=== PATIENT | female | born 1990 | race Caucasian/White ===

== ENCOUNTER 2017-04-26 16:42 | Emergency (ER) | payer BC, OTHER ==
[~2017-04-26] VITALS: Ht 165.1 cm; Wt 122.5 kg
[~2017-04-26 16:42] MED LIST: ACET1TAB43 PO; AMOX-355 PO; CALC-778 PO; CEFD300C3 PO; CEPH-507 PO; DOCU100C37 PO; FAMO-119 PO; FERR-74 PO; IBUP-1773 PO; OMEP20TA7 PO; PREN1TAB79 PO
--- OUTSIDE RECORDS SUMMARY | 2017-04-26 16:49 | XMS REPORT | Continuity of Care Document ---
Demographics Preferred Language Unknown Marital Status Unknown Sikh Affiliation Unknown Race Unknown Ethnic Group Unknown Author Author [facility] Address Unknown Phone Unavailable Allergies Active Description Code Type Severity Reaction Onset Reported/Identified Relationship to Patient Clinical Status Yes No Known Drug Allergies [id number] Drug Allergy Unknown N/A 12/25/2014 Medications There is no data. Problems Date Dx Coded Attending Type Code Diagnosis Diagnosed By 08/03/2011 462 PHARYNGITIS ACUTE 08/03/2011 465.9 UPPER RESPIRATORY INFECTION 11/02/2011 625.9 PELVIC PAIN 11/02/2011 626.4 IRREGULAR MENSTRUAL CYCLE 11/02/2011 701.2 ACQUIRED ACANTHOSIS NIGRICANS 11/02/2011 V25.01 CONTRACEPTION - ORAL CONTRACEPTION 11/02/2011 V74.5 STD SCREEN 12/16/2011 311 DEPRESSIVE DISORDER NOS 10/04/2012 625.8 OTHER SPECIFIED SYMPTOMS ASSOCIATED WITH FEMALE GENITAL ORGANS 12/25/2014 YASH AMBROSE Ot 599.0 12/25/2014 YASH AMBROSE Ot 623.8 12/25/2014 YASH AMBROSE Ot 640.03 12/25/2014 YASH AMBROSE Ot 646.63 02/25/2015 FENECH DO, ELMIRA S Ot Z36 02/25/2015 FENECH DO, ELMIRA S Ot N89.8 02/25/2015 FENECH DO, ELMIRA S Ot N94.89 02/25/2015 FENECH DO, ELMIRA S Ot O99.89 02/25/2015 FENECH DO, ELMIRA S Ot Z3A.00 03/04/2015 FENECH DO, ELMIRA S Ot V28.81 03/11/2015 FENECH DO, ELMIRA S Ot Z36 03/19/2015 PINEDA HUNTLEY DO Ot O99.613 03/19/2015 PINEDA HUNTLEY DO Ot R10.9 03/19/2015 PINEDA HUNTLEY DO Ot Z3A.30 03/28/2015 FENECH DO, ELMIRA S Ot O23.43 03/28/2015 FENECH DO, ELMIRA S Ot Z3A.32 04/06/2015 NIKITA GATES, SOPHIA Anaya Ot O47.03 04/06/2015 NIKITA GATES, SOPHIA Anaya Ot Z3A.33 04/07/2015 NIKITA GATES, SOPHIA Anaya Ot O47.03 04/07/2015 NIKITA GATES, SOPHIA Anaya Ot Z3A.33 04/30/2015 HUNTLEY PINEDA CASPER Ot O47.03 04/30/2015 HUNTLEY PINEDA CASPER Ot Z3A.36 05/27/2015 FENECH DO, ELMIRA S Ot D62 05/27/2015 FENECH DO, ELMIRA Grant Ot O41.03X0 05/27/2015 FENECH DO, ELMIRA S Ot O48.0 05/27/2015 FENECH DO, ELMIRA Grant Ot O63.0 05/27/2015 FENECH DO, ELMIRA Grant Ot O76 05/27/2015 FENECH DO, ELMIRA Grant Ot O90.81 05/27/2015 FENECH DO, ELMIRA Grant Ot O99.824 05/27/2015 FENECH DO, ELMIRA Grant Ot Z37.0 05/27/2015 FENECH DO, ELMIRA Grant Ot Z3A.40 02/22/2016 MADHU BLANCHARD DO Ot M79.671 PAIN IN RIGHT FOOT 02/22/2016 SANTO CASPER MADHU Brooke Ot R23.8 OTHER SKIN CHANGES 02/24/2016 SANTO CASPER MADHU Brooke Ot M79.671 PAIN IN RIGHT FOOT 02/24/2016 SANTO CASPER MADHU Brooke Ot R23.8 OTHER SKIN CHANGES Procedures Code Description [place] [address] GC/CHLAM PROBE (STATE) 10/04/2012 41082 CULTURE UROGENITAL 10/06/2012 Results There is no data. Encounters ACCT No. Visit Date/Time Discharge Status Pt. Type Provider Facility Loc./Unit Complaint [id number] 10/04/2012 11:09:00 Document Registration [id number] 02/22/2016 22:27:00 02/22/2016 23:09:00 DIS Emergency SANTO CASPERMADHU Via [facility] ER R FOOT PAIN [id number] 05/24/2015 04:11:00 05/27/2015 11:15:00 DIS Inpatient ELMIRA MANCILLA DO [facility] LDRP [id number] 04/30/2015 10:03:00 04/30/2015 11:15:00 DIS Outpatient [facility]ED[facility] [id number] 04/07/2015 09:23:00 04/07/2015 11:11:00 DIS Outpatient SOPHIA SHELTON [facility] [id number] 04/06/2015 09:26:00 04/06/2015 11:15:00 DIS Outpatient SOPHIA SHELTON MD [facility] [id number] 03/28/2015 17:01:00 03/28/2015 18:25:00 DIS Outpatient LATIALEV CASPER ELMIRA Juanita [facility] [id number] 03/19/2015 15:20:00 03/19/2015 16:50:00 DIS Outpatient PINEDA HUNTLEY DO [facility] [id number] 02/25/2015 17:30:00 02/25/2015 20:53:00 DIS Outpatient LAURENT CASPER ELMIRA Juanita [facility] [id number] 02/21/2015 10:11:00 02/21/2015 23:59:59 CLS Outpatient LAURENT DO ELMIRA Juanita [facility] RAD [id number] 01/21/2015 10:59:00 01/21/2015 23:59:59 CLS Outpatient LATIALEV CASPER ELMIRA Juanita [facility] RAD [id number] 12/25/2014 17:56:00 12/25/2014 21:03:00 DIS Emergency YASH AMBROSE [facility] ER
[2017-04-26] MEDS ORDERED: ACETAMINOPHEN 500 MG TAB (TYLENOL) PO ONE (17:15)
[2017-04-26] MEDS ORDERED: IBUPROFEN 800 MG (MOTRIN) TAB PO ONE (17:15)
--- NOTE | 2017-04-26 17:30 | ED General ---
General Chief Complaint: Cough/Cold/Flu Symptoms Stated Complaint: FEVER,CONFUSION,LETHARGIC,VOMITING Nursing Triage Note: PT CO OF COUGH COLD FLU SINCE YESTERDAY. FEVER 101.5 Nursing Sepsis Screen: No Definite Risk Source of Information: Patient Exam Limitations: No Limitations History of Present Illness Time Seen by Provider: 17:30 Initial Comments to ER with reports of general malaise, high fever up to 103, cough and chills since yesterday. Timing/Duration: 1-2 Days Severity: Moderate Associated Systoms: Cough, Fever/Chills Allergies and Home Medications Allergies Coded Allergies: No Known Drug Allergies (Unverified , 12/25/14) Home Medications No Active Prescriptions or Reported Meds Constitutional: see HPI EENTM: see HPI Respiratory: see HPI, cough Cardiovascular: no symptoms reported Genitourinary: no symptoms reported Musculoskeletal: no symptoms reported Skin: no symptoms reported Psychiatric/Neurological: No Symptoms Reported Past Yzjuetm-Tovapd-Iripya Hx Patient Social History Alcohol Use: Rarely Uses Recreational Drug Use: No Smoking Status: Never a Smoker Recent Foreign Travel: No Contact w/Someone Who Travel: No Recent Infectious Disease Expo: No Recent Hopitalizations: No Physical Abuse: No Sexual Abuse: No Immunizations Up To Date Tetanus Booster (TDap): Less than 5yrs Seasonal Allergies Seasonal Allergies: No Surgeries History of Surgeries: Yes (bladder surgery as a child) Surgeries: Bladder Surgery Respiratory History of Respiratory Disorde: Yes Respiratory Disorders: Asthma Currently Using CPAP: No Currently Using BIPAP: No Cardiovascular History of Cardiac Disorders: No Neurological History of Neurological Disord: No Reproductive System Hx Reproductive Disorders: No Sexually Transmitted Disease: No HIV/AIDS: No Genitourinary Genitourinary Disorders: UTI (peds) Gastrointestinal History of Gastrointestinal Di: No Musculoskeletal History of Musculoskeletal Dis: Yes (Possible pinched nerve in back) Musculoskeletal Disorders: Chronic Back Pain Endocrine History of Endocrine Disorders: No Cancer History of Cancer: No Psychosocial History of Psychiatric Problem: Yes Behavioral Health Disorders: Anxiety, Depression Suicide Risk Score: 0 Integumentary History of Skin or Integumenta: Yes Skin/Integumentary Disorders: Eczema Blood Transfusions History of Blood Disorders: No Adverse Reaction to a Blood Tr: No Family Medical History Family Medial History: FH: stroke (Grandfather) FHx: aneurysm (Grandfather) FHx: heart failure (Grandfather) Hypertension (Grandfather, mother) Physical Exam Vital Signs Vital Sign - Last 12Hours 04/26/17 17:00 Temp 101.5 Pulse 113 Resp 20 B/P (MAP) 135/80 (98) Pulse Ox 98 Capillary Refill : Less Than 3 Seconds General Appearance: No Apparent Distress, WD/WN Eyes: Bilateral Eye Normal Inspection, Bilateral Eye PERRL, Bilateral Eye EOMI HEENT: PERRL/EOMI, TMs Normal Neck: Full Range of Motion, Normal Inspection Respiratory: Normal Breath Sounds, No Accessory Muscle Use, No Respiratory Distress Cardiovascular: Regular Rate, Rhythm, Normal Peripheral Pulses Gastrointestinal: Normal Bowel Sounds, Non Tender, Soft Extremity: Normal Capillary Refill, Normal Inspection Neurologic/Psychiatric: Alert, Oriented x3, No Motor/Sensory Deficits, Other ( she is alert and oriented. There is no confusion.) Skin: Normal Color, Warm/Dry Progress/Results/Core Measures Suspected Sepsis Recent Fever Within 48 Hours: Yes Infection Criteria Present: None New/Unexplained Altered Menta: No Sepsis Screen: No Definite Risk Sepsis Diagnosis: SIRS Temperature:101.5 Pulse: 113 Respiratory Rate: 20 Blood Pressure 135 /80 Mean: 98 Results/Orders Micro Results Microbiology 04/26/17 Influenza Types A,B Antigen (GEORGE) - Final, Complete My Orders Orders - SHADI FERRARO APRN Influenza A And B Antigens (04/26/17 17:06) Acetaminophen Tablet (Tylenol Tablet) (04/26/17 17:15) Ibuprofen Tablet (Motrin Tablet) (04/26/17 17:15) Cbc With Automated Diff (04/26/17 17:06) Basic Metabolic Panel (04/26/17 17:06) Medications Given in ED Current Medications Medications Dose Ordered Sig/Corey Route Start Time Stop Time Status Last Admin Dose Admin Acetaminophen 1,000 mg ONCE ONCE PO 04/26/17 17:15 04/26/17 17:16 DC 04/26/17 17:17 1,000 MG Ibuprofen 800 mg ONCE ONCE PO 04/26/17 17:15 04/26/17 17:16 DC 04/26/17 17:17 800 MG Vital Signs/I&O Vital Sign - Last 12Hours 04/26/17 17:00 Temp 101.5 Pulse 113 Resp 20 B/P (MAP) 135/80 (98) Pulse Ox 98 Capillary Refill : Less Than 3 Seconds Blood Pressure Mean: 98 Departure Impression Impression: Primary Impression: Influenza Disposition: 01 HOME, SELF-CARE Condition: Stable Departure-Patient Inst. Decision time for Depature: 17:37 Referrals: NO,LOCAL PHYSICIAN (PCP/Family) Primary Care Physician Patient Instructions: Flu, Adult (DC) Add. Discharge Instructions: 1. Tylenol and Motrin. Expect a fever to persist for the next 3-5 days. Drink plenty of fluids to stay hydrated. Scripts No Active Prescriptions or Reported Meds Work/School Note: Work Release Form Date Seen in the Emergency Department: Apr 26, 2017 Return to Work: Apr 30, 2017 SHADI FERRARO APRN Apr 26, 2017 17:30
[2017-04-26 18:02] VITALS: BP 135/80
[2017-04-26] MEDS ORDERED: OSELTAMIVIR 75 MG (TAMIFLU) BOX OF 10 PO SCH (21:00)
== END 2017-04-26 18:04 | disposition home or self-care (01) ==
LOC: EDUNIT# 16:42 → ER 16:45
DX: J11.1 Influenza due to unidentified influenza virus with other respiratory manifestations (principal); J45.909 Unspecified asthma, uncomplicated; F41.9 Anxiety disorder, unspecified; F32.9 Major depressive disorder, single episode, unspecified; Z82.49 Family history of ischemic heart disease and other diseases of the circulatory system; Z87.440 Personal history of urinary (tract) infections
CPT/HCPCS: 87804; 99283

== ENCOUNTER 2023-03-14 11:40 | Observation (INO) | payer OTHER ==
[~2023-03-14] VITALS: Ht 165.1 cm; Wt 142.9 kg
[~2023-03-14 11:40] MED LIST changes: +ACET-11 PO; -ACET1TAB43 PO; -FERR-74 PO; +FERR325T18 PO; +OMEP20TA56 PO; -OMEP20TA7 PO
[2023-03-14] MEDS ORDERED: methylPREDNISolone INJ 125 MG VIAL IV STA (13:27)
[2023-03-14] MEDS ORDERED: RT-Ipratropium/Albuterol NEB 3 ML VIAL INH ONE (13:30)
--- NOTE | 2023-03-14 13:35 | ED Respiratory ---
General Chief Complaint: Fever-Adult/Adol Stated Complaint: FEVER - COUGH Source: patient Exam Limitations: no limitations History of Present Illness Date Seen by Provider: Mar 14, 2023 Time Seen by Provider: 13:21 Initial Comments 32-year-old female presents to the ER with reports of difficulty breathing since 03/05/2023. She reports she has had very high temperatures of 104- 105. Reports cough as well. She is complaining of heaviness in her chest that has been present since Wednesday. Reports this heaviness has been constant. She denies abdominal pain, nausea, vomiting, diarrhea. Past medical history of asthma, states she last used her albuterol inhaler yesterday. She was seen at [facility] today and they sent her out here. She reports that they did COVID, flu, and strep tests which were negative. Allergies and Home Medications Allergies Coded Allergies: No Known Drug Allergies (Unverified , 12/25/14) Patient Home Medication List Home Medication List Reviewed: Yes No Active Prescriptions or Reported Meds Review of Systems Review of Systems Constitutional: see HPI Past Kbhchzy-Ukikhl-Wjvkzk Hx Patient Social History Tobacco Use?: No Use of E-Cig and/or Vaping dev: No Substance use?: No Alcohol Use?: No Pt feels they are or have been: No Immunizations Up To Date Tetanus Booster (TDap): Less than 5yrs Influenza Vaccine Up-to-Date: No; Not Current First/Initial COVID19 Vaccinat: 3 SHOTS Seasonal Allergies Seasonal Allergies: No Past Medical History Surgery/Hospitalization HX: ASTHMA, HEART MURMER DENIES SURG Surgeries: Yes (bladder surgery as a child) Bladder Surgery Respiratory: Yes Asthma Currently Using CPAP: No Currently Using BIPAP: No Cardiac: No Neurological: No Reproductive Disorders: No Sexually Transmitted Disease: No HIV/AIDS: No UTI (peds) Gastrointestinal: No Musculoskeletal: Yes (Possible pinched nerve in back) Chronic Back Pain Endocrine: No Cancer: No Psychosocial: Yes Anxiety, Depression Integumentary: Yes Eczema Blood Disorders: No Adverse Reaction/Blood Tranf: No Family Medical History FH: stroke (Grandfather) FHx: aneurysm (Grandfather) FHx: heart failure (Grandfather) Hypertension (Grandfather, mother) Physical Exam Vital Signs - First Documented 03/14/23 12:00 Temp 38.0 Pulse 95 Resp 20 B/P (MAP) 119/73 (88) Pulse Ox 94 O2 Delivery Room Air Capillary Refill : Height: 5'5.00" Weight: 270lbs. 4.0oz. 122.169891go; 48.49 BMI Method:Stated General Appearance: WD/WN, no apparent distress Neck: supple, normal inspection Respiratory: chest non-tender, lungs clear, normal breath sounds, no respiratory distress, no accessory muscle use Cardiovascular: regular rate, rhythm Extremities: normal range of motion, normal inspection Neurologic/Psychiatric: alert, normal mood/affect Skin: normal color, warm/dry Progress/Results/Core Measures Suspected Sepsis SIRS Temperature: Pulse: Respiratory Rate: Laboratory Tests 03/14/23 13:41: White Blood Count 7.5 Blood Pressure / Mean: Laboratory Tests 03/14/23 13:41: Creatinine 1.11, INR Comment 1.0, Platelet Count 249, Total Bilirubin 0.5 Results/Orders Lab Results Laboratory Tests Test 03/14/23 13:41 Range/Units White Blood Count 7.5 4.3-11.0 10^3/uL Red Blood Count 4.61 3.80-5.11 10^6/uL Hemoglobin 13.4 11.5-16.0 g/dL Hematocrit 40 35-52 % Mean Corpuscular Volume 87 80-99 fL Mean Corpuscular Hemoglobin 29 25-34 pg Mean Corpuscular Hemoglobin Concent 34 32-36 g/dL Red Cell Distribution Width 13.6 10.0-14.5 % Platelet Count 249 130-400 10^3/uL Mean Platelet Volume 8.8 L 9.0-12.2 fL Immature Granulocyte % (Auto) 0 % Neutrophils (%) (Auto) 76 H 42-75 % Lymphocytes (%) (Auto) 15 12-44 % Monocytes (%) (Auto) 7 0-12 % Eosinophils (%) (Auto) 2 0-10 % Basophils (%) (Auto) 0 0-10 % Neutrophils # (Auto) 5.6 1.8-7.8 10^3/uL Lymphocytes # (Auto) 1.1 1.0-4.0 10^3/uL Monocytes # (Auto) 0.5 0.0-1.0 10^3/uL Eosinophils # (Auto) 0.1 0.0-0.3 10^3/uL Basophils # (Auto) 0.0 0.0-0.1 10^3/uL Immature Granulocyte # (Auto) 0.0 0.0-0.1 10^3/uL Prothrombin Time 13.8 12.2-14.7 SEC INR Comment 1.0 0.8-1.4 Activated Partial Thromboplast Time 33 24-35 SEC D-Dimer 1.74 H 0.00-0.49 UG/ML Sodium Level 136 135-145 MMOL/L Potassium Level 4.3 3.6-5.0 MMOL/L Chloride Level 104 98-107 MMOL/L Carbon Dioxide Level 22 21-32 MMOL/L Anion Gap 10 5-14 MMOL/L Blood Urea Nitrogen 9 7-18 MG/DL Creatinine 1.11 0.60-1.30 MG/DL Estimat Glomerular Filtration Rate 69 BUN/Creatinine Ratio 8 Glucose Level 107 H 70-105 MG/DL Calcium Level 9.0 8.5-10.1 MG/DL Corrected Calcium 9.0 8.5-10.1 MG/DL Magnesium Level 2.2 1.6-2.4 MG/DL Total Bilirubin 0.5 0.1-1.0 MG/DL Aspartate Amino Transf (AST/SGOT) 36 H 5-34 U/L Alanine Aminotransferase (ALT/SGPT) 22 0-55 U/L Alkaline Phosphatase 101 40-136 U/L Troponin I < 0.028 <0.028 NG/ML B-Type Natriuretic Peptide 20.3 <100.0 PG/ML Total Protein 7.9 6.4-8.2 GM/DL Albumin 4.0 3.2-4.5 GM/DL My Orders Orders - CUONG PEREA APRN Cbc And Automated Diff (03/14/23 13:27) Magnesium (03/14/23 13:27) Chest 1 View, Ap/Pa Only (03/14/23 13:27) Ekg Tracing (03/14/23 13:27) Comprehensive Metabolic Panel (03/14/23 13:27) Protime With Inr (03/14/23 13:27) Partial Thromboplastin Time (03/14/23 13:27) O2 (03/14/23 13:27) Monitor-Rhythm Ecg Trace Only (03/14/23 13:27) Ed Iv/Invasive Line Start (03/14/23 13:27) Bnp [place] (03/14/23 13:27) Fibrin Degradation Products (03/14/23 13:27) Troponin I [place] (03/14/23 13:27) Ipratropium/Albuterol Inh Soln (Ipratrop (03/14/23 13:30) Methylprednisolone Sod Succ (Methylpredn (03/14/23 13:27) Svn Small Volume Nebulizer (03/14/23 13:27) Acetaminophen Tablet (Acetaminophen Ta (03/14/23 14:00) Ns Iv 1000 Ml (Ns Iv 1000 Ml) (03/14/23 14:45) Ct Angio Chest W (R/O Pe) (03/14/23 14:40) Iohexol Injection (Omnipaque 350 Mg/Ml 1 (03/14/23 15:00) Received Contrast (Hold Metformin- Contr (03/14/23 15:00) Ns (Ivpb) 100 Ml (Sodium Chloride 0.9% 1 (03/14/23 15:00) Azithromycin Injection (Azithromycin Inj (03/14/23 16:30) Ceftriaxone Iv/Im (Ceftriaxone Iv/Im) (03/14/23 16:30) Ed Admission (Communication) (03/14/23 16:17) Sputum Culture (03/14/23 16:38) Medications Given in ED Current Medications Medications Dose Ordered Sig/Corey Route Start Time Stop Time Status Last Admin Dose Admin Acetaminophen 1,000 mg ONCE ONCE PO 03/14/23 14:00 03/14/23 14:01 DC 03/14/23 14:02 1,000 MG Albuterol/ Ipratropium 3 ml ONCE ONCE INH 03/14/23 13:30 03/14/23 13:33 DC 03/14/23 13:52 3 ML Azithromycin 500 mg/Sodium Chloride 250 ml @ 250 mls/hr ONCE ONCE IV 03/14/23 16:30 03/14/23 17:29 DC 03/14/23 17:22 250 MLS/HR Ceftriaxone Sodium 1000 mg/ Sodium Chloride 50 ml @ 100 mls/hr ONCE ONCE IV 03/14/23 16:30 03/14/23 16:59 DC 03/14/23 16:44 100 MLS/HR Iohexol 100 ml ONCE ONCE IV 03/14/23 15:00 03/14/23 15:01 DC 03/14/23 15:02 88 ML Sodium Chloride 100 ml ONCE ONCE IV 03/14/23 15:00 03/14/23 15:01 DC 03/14/23 15:02 80 ML Vital Signs/I&O 03/14/23 03/14/23 03/14/23 03/14/23 12:00 12:00 13:53 14:02 Temp 38.0 38.0 Pulse 95 Resp 20 B/P (MAP) 119/73 (88) Pulse Ox 94 97 O2 Delivery Room Air Room Air Room Air 03/14/23 17:17 Temp 37.1 Pulse 93 Resp 20 B/P (MAP) 114/65 Pulse Ox 93 O2 Delivery Room Air Capillary Refill : Progress Note : Progress Note Patient seen and evaluated, resting comfortably in recliner, no acute distress. Based on exam and symptoms, work-up initiated including CBC, CMP, coags, tropo shama, magnesium, D-dimer, BNP, chest x-ray, EKG. DuoNeb and Solu-Medrol ordered. 1441 Labs and chest x-ray reviewed. CBC grossly normal, neutrophil percentage slightly elevated 76. CMP grossly normal. AST slightly elevated 35. Troponin negative. Magnesium normal. Coags normal. D-dimer elevated 1.74. Chest x-ray shows bilateral infiltrates suggesting pneumonia. Due to elevated D-dimer, CT angio chest ordered to rule out PE. 1635 CT shows multifocal pneumonia bilaterally located in right upper, right middle, left upper, and superior portion of left lower lobe. No evidence of PE. Azithromycin and Rocephin have been ordered pneumonia. This is likely atypical pneumonia due to normal white count. Patient's oxygen saturation has mostly remained around 92% on room air, lowest saturation reading noted was 90% on room air. Due to multifocal pneumonia, I called and spoke with Dr. Ross, hospitalist, for admission. He agrees to admit patient to [facility] on observation. He would like me to place admission orders. Plan of care discussed with patient. Patient agrees to admission. ECG Initial ECG Impression Date: Mar 14, 2023 Initial ECG Impression Time: 13:43 Initial ECG Rate: 93 Initial ECG Rhythm: Normal Sinus Initial ECG Intervals: Normal Initial ECG Impression: Normal Initial ECG Comparisson: No Previous ECG Available Diagnostic Imaging Diagonstic Imaging: Xray Plain Films/CT/US/NM/MRI: chest Comments [facility]. [place], [place] NAME: KIESHA ULLOA MED REC#: [id number] PT STATUS: REG ER : 1990 PHYSICIAN: CUONG PEREA APRN ADMIT DATE: 03/14/23/ER Signed Date of Exam:03/14/23 CHEST 1 VIEW, AP/PA ONLY Indication: Chest pain. Findings: There is a vague left perihilar pulmonary opacity and more dense early consolidation in the right lower lung laterally. Bilateral pneumonia is suspected. No effusion. No pneumothorax. Impression: Bilateral infiltrates most suggestive of pneumonia. Dictated by: Dictated on workstation # [id number] Dict: 03/14/23 1417 Trans: 03/14/23 1446 CV [id number] Interpreted by: WESTON BERNABE Electronically signed by: WESTON BERNABE 03/14/23 1446 Diagonstic Imaging: CT Plain Films/CT/US/NM/MRI: chest Comments [facility]. [place], [place] NAME: KIESHA ULLOA [facility] REC#: [id number] PT STATUS: REG ER : 1990 PHYSICIAN: CUONG PEREA APRN ADMIT DATE: 03/14/23/ER Signed Date of Exam:03/14/23 CT ANGIO CHEST W (R/O PE) INDICATION: Shortness of air with an elevated D-dimer. EXAMINATION: Post IV contrast enhanced CT angio chest utilized with PE protocol and 3D reconstructions. FINDINGS: There is poor pulmonary arterial opacification as well as respiratory motion artifactual limitations. The undivided pulmonary segment, left and right main pulmonary arteries, as well as the lobar branches appear patent. No identifiable filling defect. No visible PE. There are bilateral infiltrates most suggestive of bilateral multifocal pneumonia involving the left upper lobe, superior segment of the left lower lobe, right middle and right upper lobes. No abscess, effusion or empyema. There is no pneumothorax. No pericardial collection. The thoracic aorta appears nonacute. The visible upper abdomen has a fatty liver with no visible acute abnormality. IMPRESSION: Multifocal pneumonia, bilaterally. No appreciable PE; however, motion and limited pulmonary arterial opacification on a technical basis limits sensitivity for detecting PE. Dictated by: Dictated on workstation # [id number] Dict: 03/14/23 1506 Trans: 03/14/23 1551 [facility] [id number] Interpreted by: WESTON BERNABE Electronically signed by: WESTON BERNABE 03/14/23 1551 Departure Communication (Admissions) Time/Spoke to Admitting Phy: 16:35 Dr. Ross, hospitalist, see progress note. Impression Primary Impression: Multilobar lung infiltrate Additional Impression: Pneumonia Disposition: ADMITTED INPATIENT Condition: Stable Admissions Decision to Admit Reason: Admit from ER (General) Decision to Admit/Date: Mar 14, 2023 Time/Decision to Admit Time: 16:35 Departure-Patient Inst. Referrals: NO,LOCAL PHYSICIAN (PCP/Family) Primary Care Physician Scripts No Active Prescriptions or Reported Meds CUONG PEREA APRN Mar 14, 2023 13:35
[2023-03-14] MEDS ORDERED: ACETAMINOPHEN 500 MG TABLET PO ONE (14:00)
[2023-03-14 14:02] LABS: BASOPHILS % (AUTO) 0 % (0-10); EOSINOPHILS # (AUTO) 0.1 10^3/uL (0.0-0.3); EOSINOPHILS % (AUTO) 2 % (0-10); HEMATOCRIT 40 % (35-52); HEMOGLOBIN 13.4 g/dL (11.5-16.0); LYMPHOCYTES # (AUTO) 1.1 10^3/uL (1.0-4.0); LYMPHOCYTES % (AUTO) 15 % (12-44); MEAN CORPUSCULAR HEMOGLOBIN 29 pg (25-34); MEAN CORPUSCULAR HGB CONC 34 g/dL (32-36); MEAN CORPUSCULAR VOLUME 87 fL (80-99); MEAN PLATELET VOLUME 8.8 fL (9.0-12.2); MONOCYTES # (AUTO) 0.5 10^3/uL (0.0-1.0); MONOCYTES % (AUTO) 7 % (0-12); NEUTROPHILS # (AUTO) 5.6 10^3/uL (1.8-7.8); NEUTROPHILS % (AUTO) 76 % (42-75); PLATELET COUNT 249 10^3/uL (130-400); WHITE BLOOD COUNT 7.5 10^3/uL (4.3-11.0)
[2023-03-14 14:12] LABS: PROTHROMBIN TIME PATIENT 13.8 SEC (12.2-14.7)
[2023-03-14 14:13] LABS: CHLORIDE 104 MMOL/L (98-107); POTASSIUM 4.3 MMOL/L (3.6-5.0); SODIUM 136 MMOL/L (135-145)
[2023-03-14 14:15] LABS: FIBRIN DEGRADATION PRODUCTS 1.74 UG/ML (0.00-0.49); GLUCOSE 107 MG/DL (70-105); TOTAL PROTEIN 7.9 GM/DL (6.4-8.2)
[2023-03-14 14:16] LABS: CARBON DIOXIDE 22 MMOL/L (21-32)
[2023-03-14 14:17] LABS: BILIRUBIN,TOTAL 0.5 MG/DL (0.1-1.0)
[2023-03-14 14:19] LABS: ALKALINE PHOSPHATASE 101 U/L (40-136); CREATININE SERUM 1.11 MG/DL (0.60-1.30); GFR ESTIMATED 69
[2023-03-14 14:20] LABS: BUN/CREATININE RATIO 8
[2023-03-14 14:22] LABS: ALANINE AMINOTRANSFERASE 22 U/L (0-55); MAGNESIUM 2.2 MG/DL (1.6-2.4)
--- NOTE | 2023-03-14 14:32 | Diagnostic Imaging Report ---
Indication: Chest pain. Findings: There is a vague left perihilar pulmonary opacity and more dense early consolidation in the right lower lung laterally. Bilateral pneumonia is suspected. No effusion. No pneumothorax. Impression: Bilateral infiltrates most suggestive of pneumonia. Dictated by: Dictated on workstation # [id number]
[2023-03-14] MEDS ORDERED: NS IV 1000 ML 1,000 ML IV SCH (14:45)
[2023-03-14] MEDS ORDERED: NS 100 ML (IVPB) BAG IV ONE (15:00)
[2023-03-14] MEDS ORDERED: HOLD METFORMIN - RECEIVED CONTRAST 20 ML VIAL IV SCH (15:00)
[2023-03-14] MEDS ORDERED: IOHEXOL 350 MG/ML 100 ML (OMNIPAQUE 350) VIAL IV ONE (15:00)
--- NOTE | 2023-03-14 15:21 | Diagnostic Imaging Report ---
INDICATION: Shortness of air with an elevated D-dimer. EXAMINATION: Post IV contrast enhanced CT angio chest utilized with PE protocol and 3D reconstructions. FINDINGS: There is poor pulmonary arterial opacification as well as respiratory motion artifactual limitations. The undivided pulmonary segment, left and right main pulmonary arteries, as well as the lobar branches appear patent. No identifiable filling defect. No visible PE. There are bilateral infiltrates most suggestive of bilateral multifocal pneumonia involving the left upper lobe, superior segment of the left lower lobe, right middle and right upper lobes. No abscess, effusion or empyema. There is no pneumothorax. No pericardial collection. The thoracic aorta appears nonacute. The visible upper abdomen has a fatty liver with no visible acute abnormality. IMPRESSION: Multifocal pneumonia, bilaterally. No appreciable PE; however, motion and limited pulmonary arterial opacification on a technical basis limits sensitivity for detecting PE. Dictated by: Dictated on workstation # [id number]
[2023-03-14] MEDS ORDERED: cefTRIAXone IV/IM 1,000 MG in NS (IVPB) 50 ML 50 ML IV ONE (16:30)
[2023-03-14] MEDS ORDERED: AZITHROMYCIN INJECTION 500 MG in NS (IVPB) 250 ML 250 ML IV ONE (16:30)
[2023-03-14 17:36] VITALS: BP 133/81
--- NOTE | 2023-03-14 18:15 | History & Physical-Hospitalist ---
CUONG BANKS MD,RESIDENT 03/14/231814: History of Present Illness HPI/Chief Complaint 32-year-old female with a medical history significant for asthma (last albuterol use yesterday), presents to the ED with SOB that started on 03/05/2023. She reports she has had very high temperatures of 104-105 since 03/05 associated with a cough and chest heaviness, which has been constant. She denies abdominal pain, nausea, vomiting, diarrhea. She was seen at [facility] today, they recommended that she be seen in the ED for increased SOB. She repo rts that they tested her for COVID, flu, and strep which were negative. Will admit for further management of lobar pneumonia. Source: patient Date Seen 03/14/23 Time Seen by a Provider: 19:41 Attending Physician No,Local Physician PCP Admitting Physician: Allison Valdovinos DO Attending Physician: Allison Valdovinos DO Referring Physician Date of Admission Mar 14, 2023 at 17:31 Home Medications & Allergies Home Medications Reviewed patient Home Medication Reconciliation performed by pharmacy medication reconciliations central service technician and/or nursing. Patients Allergies have been reviewed. Allergies Allergies Coded Allergies No Known Drug Allergies (Unverified12/25/14) Past Ijaelwf-Rstlpw-Eqksoh Hx Patient Social History Tobacco Use?: No Smoking Status: Never a Smoker Use of E-Cig and/or Vaping dev: No Substance use?: No Alcohol Use?: No Pt feels they are or have been: No Immunizations Up To Date First/Initial COVID19 Vaccinat: 3 SHOTS Seasonal Allergies Seasonal Allergies: No Current Status status: Unknown status: No Advance Directives: No Communicates: Verbally Primary Language: Somali Preferred Spoken Language: Somali Is interpretation needed?: No Implanted or Applied Medical D: None Past Medical History Surgeries: Bladder Surgery Asthma Currently Using CPAP: No Currently Using BIPAP: No Sexually Transmitted Disease: No HIV/AIDS: No UTI (peds) Chronic Back Pain Anxiety, Depression Eczema Blood Disorders: No Adverse Reaction/Blood Tranf: No obesity Family Medical History FH: stroke (Grandfather) FHx: aneurysm (Grandfather) FHx: heart failure (Grandfather) Hypertension (Grandfather, mother) Review of Systems Constitutional: fever EENTM: no symptoms reported Respiratory: cough, short of breath Cardiovascular: no symptoms reported Gastrointestinal: no symptoms reported Musculoskeletal: no symptoms reported Skin: no symptoms reported Psychiatric/Neurological: No Symptoms Reported Physical Exam Physical Exam Vital Signs Vital Signs - First Documented 03/14/23 12:00 Temp 38.0 Pulse 95 Resp 20 B/P (MAP) 119/73 (88) Pulse Ox 94 O2 Delivery Room Air Capillary Refill : Less Than 3 Seconds Height, Weight, BMI Height: 5'5.00" Weight: 270lbs. 4.0oz. 122.325009xx; 52.42 BMI Method:Stated General Appearance: No Apparent Distress Respiratory: Crackles Cardiovascular: Regular Rate, Rhythm Gastrointestinal: Non Tender, Soft Extremity: No Pedal Edema Neurologic/Psychiatric: Alert, Oriented x3, No Motor/Sensory Deficits Skin: Warm/Dry Lymphatic: No Adenopathy Results Results/Procedures Labs Laboratory Tests 03/14/23 13:41 Patient resulted labs reviewed. Assessment/Plan Admission Diagnosis Multifocal pneumonia Admission Status: Inpatient Order (span 2 midnights) Reason for Inpatient Admission: Multifocal pneumonia Diagnosis/Problems Diagnosis/Problems (1) Pneumonia Status: Acute Assessment & Plan: Likely CAP Fever associated with cough, SOB, chest heaviness for 1 week CXR: Impression: Bilateral infiltrates most suggestive of pneumonia. CTA chest/thorax: IMPRESSION: Multifocal pneumonia, bilaterally. No appreciable PE; however, motion and limited pulmonary arterial opacification on a technical basis limits sensitivity for detecting PE. PLAN: MAT protocol Supplemental O2 if required IV abx: ceftriaxone 1g daily + azithromycin 500 mg daily Duonebs Qualifiers: Pneumonia type: due to unspecified organism Laterality: bilateral Lung location: unspecified part of lung Qualified Codes: J18.9 - Pneumonia, unspecified organism (2) Asthma Status: Chronic Assessment & Plan: Asthma exacerbation 2/2 CAP Pt only medication albuterol rescue inhaler, she reports only using it during season changes PLAN: See pneumonia Qualifiers: Asthma severity: mild Asthma persistence: intermittent Asthma complication type: with acute exacerbation Qualified Codes: J45.21 - Mild intermittent asthma with (acute) exacerbation ALLISON VALDOVINOS DO 03/15/23 1017: History of Present Illness Source: patient Past Bxdyoxo-Afxjxj-Fuqgua Hx Family Medical History FH: stroke (Grandfather) FHx: aneurysm (Grandfather) FHx: heart failure (Grandfather) Hypertension (Grandfather, mother) Assessment/Plan Admission Diagnosis Admission Status: Inpatient Order (span 2 midnights) Reason for Inpatient Admission: multilobar PNA Assessment and Plan I personally performed the andrade portions of the visit, discussed case with resident and concur with resident documentation of history, physical exam, assessment and treatment plan unless otherwise noted. CUONG BANKS MD,RESIDENT Mar 14, 2023 18:15 ALLISON VALDOVINOS DO Mar 15, 2023 10:17
[2023-03-14] MEDS ORDERED: MILK OF MAGNESIA 400 MG/5 ML 30 ML UDC PO PRN (18:30)
[2023-03-14] MEDS ORDERED: ANTACID SUSPENSION 30 ML UDC PO PRN (18:30)
[2023-03-14] MEDS ORDERED: MELATONIN 3 MG TABLET PO PRN (18:30)
[2023-03-14] MEDS ORDERED: BISACODYL 10 MG SUPPOSITORY PR PRN (18:30)
[2023-03-14] MEDS ORDERED: CALCIUM CARBONATE 500 MG CHEW TABLET PO PRN (18:30)
[2023-03-14] MEDS ORDERED: LACTULOSE SYRUP 10GM/15ML 30ML UDC PO PRN (18:30)
[2023-03-14] MEDS ORDERED: ACETAMINOPHEN 500 MG TABLET PO PRN (18:30)
[2023-03-14] MEDS ORDERED: diphenhydrAMINE INJ 50 MG/ML VIAL IVP PRN (18:30)
[2023-03-14] MEDS ORDERED: ONDANSETRON INJECTION 4 MG/2 ML (SDV) IV PRN (18:30)
[2023-03-14] MEDS ORDERED: diphenhydrAMINE 25 MG TABLET PO PRN (18:30)
[2023-03-14] MEDS ORDERED: ONDANSETRON 4 MG ORAL DISSOLVE TABLET PO PRN (18:30)
[2023-03-14 19:33] VITALS: BP 136/84
[2023-03-14] MEDS: DOCUSATE SODIUM 100 MG CAPSULE PO SCH (21:01)
[2023-03-14] MEDS: SENNOSIDES 8.6 MG TABLET PO SCH (21:02)
[2023-03-14] MEDS: ENOXAPARIN 60 MG/0.6 ML SYRINGE SC SCH (21:03)
[2023-03-14] MEDS: ACETAMINOPHEN 325 MG TABLET PO PRN (21:06)
[2023-03-14] MEDS ORDERED: RT-Ipratropium/Albuterol NEB 3 ML VIAL INH PRN (21:15)
[2023-03-14] MEDS: RT-Ipratropium/Albuterol NEB 3 ML VIAL INH SCH (21:17)
[2023-03-15 00:35] VITALS: BP 131/64
[2023-03-15] MEDS: RT-Ipratropium/Albuterol NEB 3 ML VIAL INH SCH ×2 (02:01→07:14)
[2023-03-15 04:39] VITALS: BP 153/89
[2023-03-15 05:40] LABS: BASOPHILS % (AUTO) 0 % (0-10); EOSINOPHILS % (AUTO) 0 % (0-10); HEMATOCRIT 37 % (35-52); HEMOGLOBIN 12.3 g/dL (11.5-16.0); LYMPHOCYTES # (AUTO) 0.9 10^3/uL (1.0-4.0); LYMPHOCYTES % (AUTO) 12 % (12-44); MEAN CORPUSCULAR HEMOGLOBIN 29 pg (25-34); MEAN CORPUSCULAR HGB CONC 34 g/dL (32-36); MEAN CORPUSCULAR VOLUME 85 fL (80-99); MEAN PLATELET VOLUME 9.1 fL (9.0-12.2); MONOCYTES # (AUTO) 0.3 10^3/uL (0.0-1.0); MONOCYTES % (AUTO) 4 % (0-12); NEUTROPHILS # (AUTO) 5.9 10^3/uL (1.8-7.8); NEUTROPHILS % (AUTO) 83 % (42-75); PLATELET COUNT 261 10^3/uL (130-400); WHITE BLOOD COUNT 7.1 10^3/uL (4.3-11.0)
[2023-03-15 05:53] LABS: ALBUMIN 3.9 GM/DL (3.2-4.5)
[2023-03-15 05:54] LABS: CALCIUM 8.8 MG/DL (8.5-10.1)
[2023-03-15 05:56] LABS: TOTAL PROTEIN 7.5 GM/DL (6.4-8.2)
[2023-03-15 05:57] LABS: BILIRUBIN,TOTAL 0.3 MG/DL (0.1-1.0)
[2023-03-15 05:59] LABS: CREATININE SERUM 0.95 MG/DL (0.60-1.30)
[2023-03-15 07:42] VITALS: BP 114/68
[2023-03-15] MEDS: ENOXAPARIN 60 MG/0.6 ML SYRINGE SC SCH (07:59)
[2023-03-15] MEDS: DOCUSATE SODIUM 100 MG CAPSULE PO SCH (08:00)
[2023-03-15] MEDS: SENNOSIDES 8.6 MG TABLET PO SCH (08:00)
[2023-03-15] MEDS ORDERED: CYCLOBENZAPRINE 10 MG TABLET PO PRN (08:15)
--- NOTE | 2023-03-15 08:16 | Progress Note ---
ANTWAN MARÍTNEZ MD, RESIDENT 03/15/23 0816: Subjective Subjective/Events-last exam Overall symptoms much improved this morning. Patient states she is still having some shortness of breath particularly with exertion however states it is improved compared to when she first came in. She was noting some neck stiffness overnight not resolving with Tylenol. Has never tried Flexeril or baclofen before. Tolerating oral intake, ambulating well. Has no other concerns this morning. Review of Systems General: No Fatigue HEENT: No Head Aches Pulmonary: Dyspnea; No Cough Cardiovascular: No: Chest Pain, Palpitations, Edema Gastrointestinal: No: Nausea, Vomiting, Diarrhea, Constipation Genitourinary: No Dysuria Objective Exam Last Set of Vital Signs Vital Signs Date Time Temp Pulse Resp B/P (MAP) Pulse Ox O2 Delivery O2 Flow Rate FiO2 03/15/23 07:53 95 Room Air 03/15/23 07:42 36.4 118 18 114/68 (83) 03/14/23 21:30 21 Capillary Refill : Less Than 3 Seconds I&O Intake and Output 03/15/23 00:00 Intake Total 1650 ml Balance 1650 ml Intake Oral 350 ml IV Total 1300 ml # Voids 2 # Bowel Movements 1 Daily Weight Change No General: Alert, Oriented X3 HEENT: Atraumatic, EOMI Neck: Supple Lungs: Clear to Auscultation, Normal Air Movement Heart: Regular Rate, No Murmurs Abdomen: Normal Bowel Sounds, Soft Extremities: No Edema Neuro: Normal Speech Psych/Mental Status: Mental Status NL Results/Procedures Lab Laboratory Tests 03/14/23 13:41: White Blood Count 7.5, Red Blood Count 4.61, Hemoglobin 13.4, Hematocrit 40, Mean Corpuscular Volume 87, Mean Corpuscular Hemoglobin 29, Mean Corpuscular Hemoglobin Concent 34, Red Cell Distribution Width 13.6, Platelet Count 249, Mean Platelet Volume 8.8L, Immature Granulocyte % (Auto) 0, Neutrophils (%) (Auto) 76H, Lymphocytes (%) (Auto) 15, Monocytes (%) (Auto) 7, Eosinophils (%) (Auto) 2, Basophils (%) (Auto) 0, Neutrophils # (Auto) 5.6, Lymphocytes # (Auto) 1.1, Monocytes # (Auto) 0.5, Eosinophils # (Auto) 0.1, Basophils # (Auto) 0.0, Immature Granulocyte # (Auto) 0.0, Prothrombin Time 13.8, INR Comment 1.0, Act ivated Partial Thromboplast Time 33, D-Dimer 1.74H, Sodium Level 136, Potassium Level 4.3, Chloride Level 104, Carbon Dioxide Level 22, Anion Gap 10, Blood Urea Nitrogen 9, Creatinine 1.11, Estimat Glomerular Filtration Rate 69, BUN/Cr eatinine Ratio 8, Glucose Level 107H, Calcium Level 9.0, Corrected Calcium 9.0, Magnesium Level 2.2, Total Bilirubin 0.5, Aspartate Amino Transf (AST/SGOT) 36H, Alanine Aminotransferase (ALT/SGPT) 22, Alkaline Phosphatase 101, Troponin I < 0.028, B-Type Natriuretic Peptide 20.3, Total Protein 7.9, Albumin 4.0 03/15/23 05:31: White Blood Count 7.1, Red Blood Count 4.31, Hemoglobin 12.3, Hematocrit 37, Mean Corpuscular Volume 85, Mean Corpuscular Hemoglobin 29, Mean Corpuscular Hemoglobin Concent 34, Red Cell Distribution Width 13.0, Platelet Count 261, Mean Platelet Volume 9.1, Immature Granulocyte % (Auto) 1, Neutrophils (%) (Auto) 83H, Lymphocytes (%) (Auto) 12, Monocytes (%) (Auto) 4, Eosinophils (%) (Auto) 0, Basophils (%) (Auto) 0, Neutrophils # (Auto) 5.9, Lymphocytes # (Auto) 0.9L, Monocytes # (Auto) 0.3, Eosinophils # (Auto) 0.0, Basophils # (Auto) 0.0, Immature Granulocyte # (Auto) 0.1, Sodium Level 136, Potassium Level 4.0, Chloride Level 107, Carbon Dioxide Level 20L, Anion Gap 9, Blood Urea Nitrogen 11, Creatinine 0.95, Estimat Glomerular Filtration Rate 83, BUN/Creatinine Ratio 12, Glucose Level 183H, Calcium Level 8.8, Corrected Calcium 8.9, Total Bilirubin 0.3, Aspartate Amino Transf (AST/SGOT) 20, Alanine Aminotransferase (ALT/SGPT) 20, Alkaline Phosphatase 99, Total Protein 7.5, Albumin 3.9 Assessment/Plan Assessment/Plan Admission Status: Observation (1) Pneumonia Status: Acute Assessment & Plan: Patient noted to have pneumonia on chest x-ray and CTA chest, multifocal bilaterally. Presented with fever associated with cough, shortness of breath and chest heaviness for 1 week. Symptoms overall improving today. Plan: Met protocol Supplemental oxygen if required however doing well on room air IV antibiotics, ceftriaxone and azithromycin DuoNebs as needed, albuterol as needed Qualifiers: Qualified Codes: J18.9 - Pneumonia, unspecified organism (2) Asthma Status: Chronic Assessment & Plan: Asthma exacerbation secondary to community-acquired pneumonia. Patient only has albuterol rescue inhaler at home. See above for plan. Qualifiers: Qualified Codes: J45.21 - Mild intermittent asthma with (acute) exacerbation SHARON DEE MD 03/15/23 1537: Supervisory-Addendum Brief Supervisory Addendum I personally performed the andrade portions of the visit, discussed case with resident and concur with resident documentation of history, physical exam, asses sment and treatment plan unless otherwise noted. ANTWAN MARTÍNEZ MD, RESIDENT Mar 15, 2023 08:16 SHARON DEE MD Mar 15, 2023 15:37
[2023-03-15] MEDS: ACETAMINOPHEN 325 MG TABLET PO PRN (10:31)
[2023-03-15] MEDS ORDERED: CEFD300C3 PO (11:06)
[2023-03-15] MEDS ORDERED: RT-ALBUINH INH (11:06)
[2023-03-15] MEDS ORDERED: AZIT500T9 PO (11:06)
[2023-03-15] MEDS ORDERED: IPRA3AMP31 IH (11:06)
[2023-03-15] MEDS ORDERED: PRD20T PO (11:06)
--- NOTE | 2023-03-15 11:12 | Discharge Summary ---
ANTWAN MARTÍNEZ MD, RESIDENT 03/15/23 1112: Discharge Summary Hospital Course Problems Reviewed?: Yes Problems/Diagnosis: (1) Pneumonia Status: Acute Assessment & Plan: Patient noted to have pneumonia on chest x-ray and CTA chest, multifocal bilaterally. Presented with fever associated with cough, shortness of breath and chest heaviness for 1 week. Symptoms overall improving today. Plan: Met protocol Supplemental oxygen if required however doing well on room air IV antibiotics, ceftriaxone and azithromycin. We will switch to cefdinir and azithromycin on discharge DuoNebs as needed, albuterol as needed Qualifiers: Qualified Codes: J18.9 - Pneumonia, unspecified organism (2) Asthma Status: Chronic Assessment & Plan: Asthma exacerbation secondary to community-acquired pneumonia. Patient only has albuterol rescue inhaler at home. See above for plan. Patient would benefit from PFTs in the outpatient as well as possible sleep study Qualifiers: Qualified Codes: J45.21 - Mild intermittent asthma with (acute) exacerbation Hospital Course Date of Admission: Mar 14, 2023 at 17:31 Admission Diagnosis : Family Physician/Provider: MichelineLocal Physician Date of Discharge: 03/15/23 Discharge Diagnosis: Pneumonia, asthma exacerbation Hospital Course: Patient is a 32-year-old female with a past medical history of asthma who presented to the ED with shortness of breath that started on Wednesday. She states she had fevers in the outpatient and was also having chest heaviness thus causing her to present to the ED. In the ED, chest x-ray was notable for multilobar lung infiltrate. We treated patient with IV ceftriaxone and azithromycin with overall improvement in her symptoms. We will discharge patien t today with cefdinir and azithromycin to complete antibiotic course. We will also send a steroid to treat asthma exacerbation. We will send patient home with albuterol and DuoNebs however she will benefit from spirometry in the outpatient to assess lung function. May also benefit from a sleep study in the outpatient. Recommend following up with PCP or any provider in 1 week. Labs and Pending Lab Test: Laboratory Tests 03/14/23 13:41: White Blood Count 7.5, Red Blood Count 4.61, Hemoglobin 13.4, Hematocrit 40, Mean Corpuscular Volume 87, Mean Corpuscular Hemoglobin 29, Mean Corpuscular Hemoglobin Concent 34, Red Cell Distribution Width 13.6, Platelet Count 249, Mean Platelet Volume 8.8L, Immature Granulocyte % (Auto) 0, Neutrophils (%) (Auto) 76H, Lymphocytes (%) (Auto) 15, Monocytes (%) (Auto) 7, Eosinophils (%) (Auto) 2, Basophils (%) (Auto) 0, Neutrophils # (Auto) 5.6, Lymphocytes # (Auto) 1.1, Monocytes # (Auto) 0.5, Eosinophils # (Auto) 0.1, Basophils # (Auto) 0.0, Immature Granulocyte # (Auto) 0.0, Prothrombin Time 13.8, INR Comment 1.0, Activated Partial Thromboplast Time 33, D-Dimer 1.74H, Sodium Level 136, Potassium Level 4.3, Chloride Level 104, Carbon Dioxide Level 22, Anion Gap 10, Blood Urea Nitrogen 9, Creatinine 1.11, Estimat Glomerular Filtration Rate 69, BUN/Creatinine Ratio 8, Glucose Level 107H, Calcium Level 9.0, Corrected Calcium 9.0, Magnesium Level 2.2, Total Bilirubin 0.5, Aspartate Amino Transf (AST/SGOT) 36H, Alanine Aminotransferase (ALT/SGPT) 22, Alkaline Phosphatase 101, Troponin I < 0.028, B-Type Natriuretic Peptide 20.3, Total Protein 7.9, Albumin 4.0 03/15/23 05:31: White Blood Count 7.1, Red Blood Count 4.31, Hemoglobin 12.3, Hematocrit 37, Mean Corpuscular Volume 85, Mean Corpuscular Hemoglobin 29, Mean Corpuscular Hemoglobin Concent 34, Red Cell Distribution Width 13.0, Platelet Count 261, Mean Platelet Volume 9.1, Immature Granulocyte % (Auto) 1, Neutrophils (%) (Auto) 83H, Lymphocytes (%) (Auto) 12, Monocytes (%) (Auto) 4, Eosinophils (%) (Auto) 0, Basophils (%) (Auto) 0, Neutrophils # (Auto) 5.9, Lymphocytes # (Auto) 0.9L, Monocytes # (Auto) 0.3, Eosinophils # (Auto) 0.0, Basophils # (Auto) 0.0, Immature Granulocyte # (Auto) 0.1, Sodium Level 136, Potassium Level 4.0, Chloride Level 107, Carbon Dioxide Level 20L, Anion Gap 9, Blood Urea Nitrogen 11, Creatinine 0.95, Estimat Glomerular Filtration Rate 83, BUN/Creatinine Ratio 12, Glucose Level 183H, Calcium Level 8.8, Corrected Calcium 8.9, Total Bilirubin 0.3, Aspartate Amino Transf (AST/SGOT) 20, Alanine Aminotransferase (ALT/SGPT) 20, Alkaline Phosphatase 99, Total Protein 7.5, Albumin 3.9 Home Meds Active Prednisone 20 Mg Tab 40 Mg PO DAILY 5 Days Iprat-Albut 0.5-3(2.5) mg/3 ml (Ipratropium/Albuterol Sulfate) 0.5 Mg-3 Mg (2.5 Mg Base)/3 Ml Ampul.neb 3 Ml IH Q4H PRN 30 Days Ventolin Hfa (Albuterol Sulfate) 1 Puff Puff 2 Puff INH Q4H PRN 30 Days 1 PUFF = 90 MCG Azithromycin 500 Mg Tablet 500 Mg PO DAILY 4 Days Cefdinir 300 Mg Capsule 300 Mg PO BID 4 Days Assessment/Pt DC Instructions Please see electronic discharge instructions given to patient. Discharge Diet: No Restrictions Activity as Tolerated: Yes Discharge Physical Examination Allergies: Coded Allergies: No Known Drug Allergies (Unverified , 12/25/14) General Appearance: No Apparent Distress HEENT: Normal ENT Inspection Respiratory: Chest Non Tender, Lungs Clear, Normal Breath Sounds, No Accessory Muscle Use, No Respiratory Distress Cardiovascular: Regular Rate, Rhythm, No Edema, No Murmur Gastrointestinal: Normal Bowel Sounds, Non Tender, Soft Extremity: No Pedal Edema Skin: Normal Color, Warm/Dry Neurologic/Psychiatric: Alert, Oriented x3 Copy Copies To 1: SHARON Tellez MD 03/15/23 1355: Discharge Summary Discharge Physical Examination Allergies: Coded Allergies: No Known Drug Allergies (Unverified , 12/25/14) Copy Copies To 1: Zandra Calix Supervisory-Addendum Brief Supervisory Addendum I personally performed the andrade portions of the visit, discussed case with resident and concur with resident documentation of history, physical exam, assessment and treatment plan unless otherwise noted. ANTWAN MARTÍNEZ MD, RESIDENT Mar 15, 2023 11:12 SHARON DEE MD Mar 15, 2023 13:55
[2023-03-15] MEDS ORDERED: FLUTICASONE NASAL SPRAY (120 SPRAYS) NS SCH (11:15)
[2023-03-15] MEDS ORDERED: ACETAMINOPHEN 500 MG TABLET PO ONE (11:15)
[2023-03-15] MEDS ORDERED: NITR100C PO (11:36)
[2023-03-15] MEDS ORDERED: IBUP-2473 PO (11:37)
[2023-03-15] MEDS ORDERED: ACET-2267 PO (11:37)
[2023-03-15] MEDS ORDERED: CETI10TA49 PO (11:38)
[2023-03-15 11:40] VITALS: BP 126/66
[2023-03-15 13:40] VITALS: BP 126/66
[2023-03-15] MEDS ORDERED: cefTRIAXone IV/IM 1,000 MG in NS (IVPB) 50 ML 50 ML IV SCH (17:00)
[2023-03-16] MEDS ORDERED: AZITHROMYCIN INJECTION 500 MG in NS (IVPB) 250 ML 250 ML IV SCH (17:00)
== END 2023-03-15 13:35 | disposition home or self-care (01) ==
LOC: EDUNIT# 11:40 → ER 11:41 → UNDOADMOB 17:31 → 4TH 17:31 → UNDODISOB 03-15 13:35
PROVIDERS: ADMIT Internal Medicine; ATTEND Family Medicine
DX: J18.9 Pneumonia, unspecified organism (principal); J45.21 Mild intermittent asthma with (acute) exacerbation
CPT/HCPCS: 71045; 71275; 80053 ×2; 83735; 83880; 84484; 85025 ×2; 85379; 85610; 85730; 93005; 93041; 94640 ×3; 94760 ×2; 94761; 96361; 96365; 96366; 96375; 99284; G0378; 36415